=== PATIENT | female | born 1975 | race Caucasian/White ===

== ENCOUNTER 2018-02-06 20:40 | Emergency (ER) | payer OTHER ==
[~2018-02-06] VITALS: Ht 162.6 cm; Wt 70.3 kg
[2018-02-06] MEDS ORDERED: ADVIL200 M1 (21:13)
[2018-02-06] MEDS ORDERED: CAMBIA50 MG (21:14)
[2018-02-07] MEDS ORDERED: NORFLEX100MG PO ×2 (02:48→02:49)
[2018-02-07] MEDS ORDERED: KETO10TA2 PO ×2 (02:48→02:49)
== END 2018-02-07 02:54 ==
LOC: ER 20:40
DX: G44.229 Chronic tension-type headache, not intractable (principal)

== ENCOUNTER 2018-04-10 22:14 | Emergency (ER) | payer OTHER ==
[~2018-04-10] VITALS: Ht 162.6 cm; Wt 68.0 kg
[~2018-04-10 22:14] MED LIST: ADVIL200 M1; CAMBIA50 MG; KETO10TA2 PO; NORFLEX100MG PO
[2018-04-10] MEDS ORDERED: LYRICA50 MG (22:58)
[2018-04-10] MEDS ORDERED: KEPPRA500 MG (22:58)
[2018-04-11] MEDS ORDERED: LEVAQUIN500 MG PO (05:55)
[2018-04-11] MEDS ORDERED: ZOFRAN ODT8 MG PO (05:55)
== END 2018-04-11 05:57 | disposition home or self-care (01) ==
LOC: ER 22:14
DX: N39.0 Urinary tract infection, site not specified (principal); B96.89 Other specified bacterial agents as the cause of diseases classified elsewhere

== ENCOUNTER 2018-07-14 21:15 | Emergency (ER) | payer OTHER ==
[~2018-07-14] VITALS: Ht 162.6 cm; Wt 69.9 kg
[~2018-07-14 21:15] MED LIST changes: +KEPPRA500 MG; +LEVAQUIN500 MG PO; +LYRICA50 MG; +ZOFRAN ODT8 MG PO
[2018-07-15] MEDS ORDERED: PEPCID40 MG PO (08:35)
[2018-07-15] MEDS ORDERED: ZOFRAN4 MG PO (08:35)
== END 2018-07-15 09:07 ==
LOC: ER 21:15
DX: G43.809 Other migraine, not intractable, without status migrainosus (principal); K29.70 Gastritis, unspecified, without bleeding; M62.830 Muscle spasm of back

== ENCOUNTER 2018-12-01 20:20 | Emergency (ER) | payer OTHER ==
[~2018-12-01] VITALS: Ht 162.6 cm; Wt 70.8 kg
[~2018-12-01 20:20] MED LIST changes: +PEPCID40 MG PO; +ZOFRAN4 MG PO
[2018-12-01] MEDS ORDERED: CLONAZEPAM1 M1 (20:38)
[2018-12-01] MEDS ORDERED: CYMBALTA60 MG (20:38)
[2018-12-01] MEDS ORDERED: LODINE300 MG (20:38)
[2018-12-01] MEDS ORDERED: ABILIFY10 MG (20:38)
== END 2018-12-01 21:20 | disposition home or self-care (01) ==
LOC: ER 20:20
DX: G24.3 Spasmodic torticollis (principal)

== ENCOUNTER 2019-03-30 13:22 | Emergency (ER) | payer OTHER ==
[~2019-03-30] VITALS: Ht 162.6 cm; Wt 73.0 kg
[~2019-03-30 13:22] MED LIST changes: +ABILIFY10 MG; +CLONAZEPAM1 M1; +CYMBALTA60 MG; +LODINE300 MG
[2019-03-30] MEDS ORDERED: NORFLEX IM (13:40)
[2019-03-30] MEDS ORDERED: TORADOL60 MG IM (13:41)
[2019-03-30] MEDS ORDERED: SPIRIVA RESPIMAT4 G1 IH (13:45)
== END 2019-03-30 15:56 | disposition home or self-care (01) ==
LOC: ER 13:22
DX: M79.7 Fibromyalgia (principal)

== ENCOUNTER 2019-10-09 20:24 | Emergency (ER) | payer OTHER ==
[~2019-10-09] VITALS: Ht 162.6 cm; Wt 74.8 kg
[~2019-10-09 20:24] MED LIST changes: +NORFLEX IM; +SPIRIVA RESPIMAT4 G1 IH; +TORADOL60 MG IM
[2019-10-09] MEDS ORDERED: KEPPRA1000 MG PO (20:40)
[2019-10-09] MEDS ORDERED: MELOXICAM15 MG (20:40)
[2019-10-09] MEDS ORDERED: IMITREX (20:41)
[2019-10-09] MEDS ORDERED: SEROQUEL50 MG PO (20:41)
[2019-10-09] MEDS ORDERED: LYRICA100 MG PO (20:42)
== END 2019-10-09 22:32 | disposition home or self-care (01) ==
LOC: ER 20:24
DX: M54.89 Other dorsalgia (principal); M79.622 Pain in left upper arm

== ENCOUNTER 2020-03-02 21:42 | Emergency (ER) | payer OTHER ==
[~2020-03-02] VITALS: Ht 162.6 cm; Wt 72.6 kg
[~2020-03-02 21:42] MED LIST changes: +IMITREX; +KEPPRA1000 MG PO; +LYRICA100 MG PO; +MELOXICAM15 MG; +SEROQUEL50 MG PO
[2020-03-03] MEDS ORDERED: LEVSIN/SL0.125 MG SL (07:03)
== END 2020-03-03 07:22 | disposition home or self-care (01) ==
LOC: ER 21:42
DX: R10.13 Epigastric pain (principal); R10.11 Right upper quadrant pain